=== PATIENT | male | born 1995 | race Caucasian/White ===

== ENCOUNTER 2024-11-22 15:12 | Emergency (ER) | payer SELFPAY ==
[~2024-11-22] VITALS: Ht 182.9 cm; Wt 96.0 kg
--- NOTE | 2024-11-22 15:18 | Physician Documentation ---
History of Present Illness ~ Chief Complaint: ETOH Withdrawl Stated Complaint: ETOH Time Seen by MD: 15:13 HPI 29-year-old male with a history of alcoholism and binge drinking along with following DTs presents today via EMS after a week-long binge Patient denies any history have not seizures but does have hallucinations with DTs states he has been drinking 6-10 40 oz bottles of beer a day. Last drink was at noon. Medication Reconciliation Allergies: Coded Allergies: No Known Allergies (Unverified , 11/22/24) Physical Exam Physical Exam General: Alert, Tremulous Respiratory: Lungs clear, no respiratory distress. Chest: No accessory muscle use. Cardiovascular: tachycardic Gastrointestinal: Soft, nontender, nondistended. Bowels sounds present. Neurologic: Oriented x4. Psychiatric: Anxious appearing Skin: Normal color, warm and dry. No edema, no ecchymosis. Progress Results/Orders Results/Orders Completed Orders - DIONICIO PARSONS C[employer]KE [employer]ING Cbc/Diff (11/22/24 15:39) BMP (11/22/24 15:39) Lipase (11/22/24 15:39) CMP (11/22/24 15:39) Normal Saline 1000ml (0.9% Sodium Chlori (11/22/24 15:40) Diazepam Inj (Valium Inj) (11/22/24 15:40) Ua W/Microscopic, Cult If Ind (11/22/24 15:57) Medications Received in ER Medications (Trade) Dose Ordered Sig/Elisabeth Route PRN Reason Start Time Stop Time Status Last Admin Dose Admin (0.9% sodium chloride (NS) 1000ml IV soln) 1,000 ml ONCE ONCE IVB 11/22/24 15:40 11/22/24 15:41 DC 11/22/24 16:01 1,000 ML (Valium inj) 10 mg ONCE ONCE IV 11/22/24 15:40 11/22/24 15:41 DC 11/22/24 16:01 10 MG Vital Signs 11/22/24 11/22/24 11/22/24 11/22/24 15:14 15:21 15:35 16:53 Temp 97.3 97.3 Pulse 120 91 95 Resp 24 17 18 B/P (MAP) 153/94 146/79 (101) 131/80 (97) Pulse Ox 94 94 97 O2 Flow Rate 0 0 Laboratory Tests Test 11/22/24 15:56 11/22/24 15:57 White Blood Count 9.6 Red Blood Count 5.92 Hemoglobin 17.2 Hematocrit 49.2 Mean Corpuscular Volume 83.1 Mean Corpuscular Hemoglobin 29.1 Mean Corpuscular Hemoglobin Concent 35.0 Red Cell Distribution Width 12.2 Platelet Count 401 Mean Platelet Volume 7.4 Neutrophils (%) (Auto) 64.9 Lymphocytes (%) (Auto) 27.0 Monocytes (%) (Auto) 6.8 Eosinophils (%) (Auto) 0.6 Basophils (%) (Auto) 0.7 Neutrophils # (Auto) 6.2 Lymphocytes # (Auto) 2.6 Monocytes # (Auto) 0.6 Eosinophils # (Auto) 0.1 Basophils # (Auto) 0.1 CBC Comment Sodium Level 135 Potassium Level 4.1 Chloride Level 99 Carbon Dioxide Level 26.7 Anion Gap 9 Blood Urea Nitrogen 12 Creatinine 1.06 Estimated GFR/1.73 m2 83 BUN/Creatinine Ratio 11.3 Glucose Level 88 Calcium Level 8.2 L Total Bilirubin 0.8 Aspartate Amino Transf (AST/SGOT) 53 H Alanine Aminotransferase (ALT/SGPT) 64 Alkaline Phosphatase 80 Total Protein 7.3 Albumin 4.1 Globulin 3.2 Albumin/Globulin Ratio 1.3 Lipase 65 Chemistry Comments Urine Specimen Description Urinal Urine Color Yellow Urine Clarity Clear Urine pH 6.0 Urine Specific [place] <=1.005 Urine Protein 30 H Urine Glucose (UA) Negative Urine Ketones Trace H Urine Occult Blood Small Urine Nitrite Negative Urine Bilirubin Negative Urine Urobilinogen 0.2 Urine Leukocyte Esterase Negative Urine RBC 3-10 Urine WBC 0-4 Urine Squamous Epithelial Cells Few Urine Bacteria Few Urine Fine Granular Casts 0-3 Urine Culture Indicated Not ind Volume Urine Centrifuged 10 ml Urine Comment Departure Disposition: HOME / SELF CARE / HOMELESS Impression: Primary Impression: Alcohol withdrawal syndrome Additional Impression: Alcohol dependence Condition: Stable Discharge Instructions: Alcohol Intoxication Referrals: NO PRIMARY CARE PROVIDER (PCP) Prescriptions Chlordiazepoxide Hcl (Librium) 25 Mg Capsule 2 CAP PO Q4H PRN for anxiety for 2 Days, #24 CAP 0 Refills Prov: DIONICIO PARSONS [employer]ING 11/22/24 Education Educated: Patient Educated regarding: diagnosis Signature Scribe Signature: fd Attestation: Scribed for Dionicio Parsons Belt Cleaner by Dionicio Novoa NP . 11/22/24 15:19 DIONICIO PARSONS NP Nov 22, 2024 15:18
[2024-11-22] MEDS: normal saline 1000ML IV soln IVB ONE (16:01)
[2024-11-22] MEDS: diazepam inj 5 MG/ML inj. IV ONE (16:01)
[2024-11-22 16:10] LABS: MEAN PLATELET VOLUME 7.4 FL (7.4-10.4); RED CELL DISTRIBUTION WIDTH 12.2 % (11.5-14.5)
[2024-11-22 16:13] LABS: LEUKOCYTE ESTERASE ,URINE NEGATIVE (Neg); NITRITES, URINE NEGATIVE (Neg); OCCULT BLOOD,URINE SMALL (Neg)
[2024-11-22 16:15] LABS: UA COLLECTION TYPE URINAL
[2024-11-22 16:25] LABS: CREATININE 1.06 MG/DL (0.60-1.10); TOTAL CARBON DIOXIDE 26.7 MMOL/L (24-32); eCRCL 113 ML/MIN; eGFR 83 ML/MIN
[2024-11-22 16:44] LABS: FINE GRANULAR CAST 0-3 /LPF (NEGATIVE); SQUAMOUS EPITHELIAL CELL,UR FEW /LPF (FEW)
[2024-11-22 16:53] VITALS: TEMP 97.3
[2024-11-22] MEDS ORDERED: CHLO25CA10 PO ×2 (17:00→17:01)
[2024-11-22 17:05] VITALS: BP 129/83; PULSE 81; RESP 23; O2SAT 96
== END 2024-11-22 17:27 | disposition home or self-care (01) ==
LOC: ER 15:12
DX: F10.239 Alcohol dependence with withdrawal, unspecified (principal); Y90.9 Presence of alcohol in blood, level not specified
CPT/HCPCS: 36415; 80053; 81001; 83690; 85025; 96361; 96374; 99284; J3360; J7030

== ENCOUNTER 2024-11-23 00:08 | Emergency (ER) | payer SELFPAY ==
[~2024-11-23] VITALS: Ht 182.9 cm; Wt 95.5 kg
[~2024-11-23 00:08] MED LIST: CHLO25CA10 PO
[2024-11-23 00:11] VITALS: BP 132/85; PULSE 106; RESP 16; TEMP 97.7; O2SAT 96
[2024-11-23 00:24] LABS: MEAN PLATELET VOLUME 7.0 FL (7.4-10.4); RED CELL DISTRIBUTION WIDTH 12.1 % (11.5-14.5)
[2024-11-23 00:44] LABS: CREATININE 1.07 MG/DL (0.60-1.10); TOTAL CARBON DIOXIDE 24.5 MMOL/L (24-32); eCRCL 112 ML/MIN; eGFR 82 ML/MIN
[2024-11-23 00:50] LABS: ETHANOL 401 MG/DL (<10)
== END 2024-11-23 01:15 | disposition left against medical advice (07) ==
LOC: ER 00:09
DX: F10.129 Alcohol abuse with intoxication, unspecified (principal); Z53.21 Procedure and treatment not carried out due to patient leaving prior to being seen by health care provider; Y90.9 Presence of alcohol in blood, level not specified
CPT/HCPCS: 36415; 80048; 80320; 85025

== ENCOUNTER 2024-11-23 08:39 | Emergency (ER) | payer BC ==
[~2024-11-23] VITALS: Ht 182.9 cm; Wt 97.7 kg
[2024-11-23 09:11] VITALS: BP 170/103; PULSE 86; RESP 18; TEMP 98.3; O2SAT 99
--- NOTE | 2024-11-23 09:24 | Physician Documentation ---
History of Present Illness ~ Chief Complaint: ETOH Withdrawl Stated Complaint: ALCOHOL WITHDRAWAL Time Seen by MD: 08:57 HPI 79-year-old male who was seen yesterday for ETOH withdrawal returns to the ED because he was unable to cone picker the prescribed Librium because his pharmacy was closed. Said he drank throughout the night and presents here requesting evaluation for ETOH withdrawal. His pharmacy opens at 10:00 a.m. which is currently 40 minutes from now. Vitals are within normal limits patient does not present with any tremors, seizures or any auditory or visual hallucinations Medication Reconciliation Allergies: Coded Allergies: No Known Allergies (Unverified , 11/22/24) Scheduled PRN Chlordiazepoxide Hcl (Librium), 2 CAP PO Q4H PRN for anxiety Review of Systems All Other Systems at this time: Reviewed and Negative ROS As stated above in the HPI, otherwise all systems are reviewed and negative. Physical Exam Vital Signs: Temperature: 98.3, Source: Oral, Heart Rate: 86, Respiratory Rate: 18, BP: 170/103, Pulse Oximetry: 99, Weight: 97.730 Oxygen Flow Rate: 0 Physical Exam General: Alert, no apparent distress. Respiratory: Lungs clear, no respiratory distress. Cardiovascular: Regular rate and rhythm, no murmurs. Gastrointestinal: Soft, nontender, nondistended. Bowels sounds present. Neurologic: Oriented x4. Psychiatric: Normal mood and affect. Progress Results/Orders Results/Orders Vital Signs 11/23/24 11/23/24 11/23/24 08:49 09:11 09:13 Temp 98.3 98.3 Pulse 96 86 Resp 17 18 B/P (MAP) 148/86 170/103 (125) Pulse Ox 100 99 O2 Flow Rate 0 0 Medical Decision Making Findings This patient actually looks quite a bit better than he did yesterday when he was treated for alcohol withdrawal. Explained to the patient that his laboratory values were reassuring yesterday and mostly what he had received in the ED is IV fluids and benzodiazepines. However he already has Librium awaiting for him at the pharmacy which opens in 40 minutes. Explained that the goal is to abstain from alcohol and use Librium to taper. I explained this both to the patient and his significant other. He has been time reassuring them that he actually looks better today than he did yesterday. They verbalized understanding. Safe for discharge Differential Dx:Considerations: Intoxication - ETOH, Intoxication - other drug, Sub. Abuse -continuous, Sub. Abuse-intermittent, Skull fracture, Fracture - other bone, Personality disorder, Closed head injury, Cervical spine injury, Abrasion, Confusion, Hematoma, Laceration, Foreign body, Dehydration, Encephalopathy, Hepatitis, Pancreatitis, Thiamine deficiency, Other Departure Disposition: 01 HOME / SELF CARE / HOMELESS Impression: Primary Impression: Alcohol dependence Condition: Stable Discharge Instructions: Alcohol Intoxication Additional Instructions: Please cone picker the prescribed medications at your pharmacy to assist you with a tapering alcohol usage Referrals: NO PRIMARY CARE PROVIDER (PCP) Signature Scribe Signature: k Attestation: Scribed for Dionicio Parsons Capacity Planning Analyst by Dionicio Novoa NP . 11/23/24 18:17 DIONICIO PARSONS NP Nov 23, 2024 09:24
== END 2024-11-23 09:31 | disposition home or self-care (01) ==
LOC: ER 08:40
DX: F10.20 Alcohol dependence, uncomplicated (principal); Y90.9 Presence of alcohol in blood, level not specified
CPT/HCPCS: 99282; 99283

== ENCOUNTER 2025-04-16 19:35 | Emergency (ER) | payer BC ==
[~2025-04-16] VITALS: Ht 182.9 cm; Wt 95.0 kg
--- NOTE | 2025-04-16 19:55 | ELECTROCARDIOGRAPH REPORT ---
[facility] Test Date: 2025-04-16 Test Time: 19:44:00 Pat Name: IRIS MASON Department: EMERGENCY ROOM Patient ID: [id number] Room: Gender: M Director [employer]: LEONILA : 1995 Requested By: PRISCILLA HARRIS Order Number: [id number] Reading MD: Measurements Intervals [place] Rate: 75 P: 67 FL: 176 QRS: -16 QRSD: 106 T: 41 QT: 377 QTc: 421 Interpretive Statements Sinus rhythm Borderline left axis deviation Baseline wander in lead(s) V4,V5 Please click the below link to view image of tracing.
[2025-04-16 20:20] LABS: MEAN PLATELET VOLUME 7.4 FL (7.4-10.4); RED CELL DISTRIBUTION WIDTH 12.5 % (11.5-14.5)
[2025-04-16 20:41] LABS: CREATININE 1.03 MG/DL (0.60-1.10); TOTAL CARBON DIOXIDE 29.8 MMOL/L (24-32); eCRCL 115 ML/MIN; eGFR 85 ML/MIN
[2025-04-16 20:44] LABS: PRO BRAIN NATRIURETIC PEPTIDE < 30 PG/ML (0-125)
--- NOTE | 2025-04-16 21:40 | RADIOLOGY REPORT ---
CLINICAL HISTORY: CP. TECHNIQUE: Single frontal view of the chest was obtained. COMPARISON: None available. FINDINGS: Lungs: Clear. Pleura: No pneumothorax or pleural effusion. Cardiomediastinal silhouette: Normal in size. Bones: No acute osseous abnormality. Imaged Upper Abdomen: Unremarkable. IMPRESSION: NO ACUTE CARDIOPULMONARY PROCESS.
[2025-04-16 22:56] LABS: ETHANOL < 10 MG/DL (<10)
--- NOTE | 2025-04-16 23:13 | Physician Documentation ---
History of Present Illness General Chief Complaint: ETOH Withdrawl Stated Complaint: ALCOHOL WITHDRAWL Time Seen by MD: 20:52 Mode of Arrival: POV History of Present Illness Initial Comments This is a 30-year-old gentleman with a known history of alcohol use disorder who presents for evaluation of alcohol withdrawal symptoms that he describes as anxiety, chest palpitation is a tightness, a nausea. He reports shakes. Last drink was at 6:00 a.m.. He typically drinks six of the 40 oz high gravity beers a day throughout the 24 hour period. No particular palliating or aggravating factors. This is similar to prior alcohol withdrawal. Never had alcohol withdrawal delirium of seizures. Denies any other symptoms. Denies drug use. Medication Reconciliation Allergies: Coded Allergies: No Known Allergies (Unverified , 11/22/24) Scheduled PRN Chlordiazepoxide Hcl (Librium), 2 CAP PO Q4H PRN for anxiety Review of Systems ROS 10 point review of systems was performed and unless noted above in HPI is negative for acute process/complaint. Physical Exam Physical Exam Vital Signs: Temperature: 98.6, Heart Rate: 68, Respiratory Rate: 16, BP: 151/109, Pulse Oximetry: 98, Weight: 95.000 Oxygen Flow Rate: 0 Physical Exam GENERAL: Awake, alert, oriented, GCS 15, no apparent distress, non-toxic appearing, answers questions, follows commands appropriately. Examined in bed 3. HEENT: Atraumatic, normocephalic, pupils equal, extraocular muscles intact, sclerae anicteric, mucus membranes moist, oropharynx is clear, no stridor. NECK: supple, full active range of motion, trachea midline, no thyromegaly, no lymphadenopathy, no JVD. CARDIOVASCULAR: regular rate/rhythm, no murmurs/gallops/rubs, Pulses are 2+ in all extremities and symmetric. Capillary refill less than 2 seconds. PULMONARY: Nonlabored, good air movement ,no respiratory distress, speaking in full sentences, clear to auscultation bilaterally, no wheezing, no ronchi, no rales, no accessory muscle use. GASTROINTESTINAL: Soft, non-tender, non-distended, normal active bowel sounds, no organomegaly, no pulsatile masses, no CVA tenderness. NEUROLOGIC: Lucid with normal mental status. Normal facial symmetry. Moves all extremities symmetrically and with purpose. No truncal ataxia. Speech is fluid without evidence of dysarthria or aphasia, no focal deficits appreciated. MUSCULOSKELETAL: There is full range of motion of all extremities. There is no joint pain or joint swelling or joint erythema. There is no muscle pain or tenderness or swelling. EXTREMITIES: warm, well-perfused, no cyanosis, no clubbing, no edema, no acute deformities. Skin: warm, dry, no rashes or lesions, no jaundice, no petechiae orpurpura. No ecchymosis. PSYCHIATRIC: Normal affect, normal insight, normal concentration. Focused exam: Mild bilateral upper extremity tremors and tongue fasciculations noted. Progress Results/Orders Results/Orders Orders - JEAN PIERRE HARRIS DO Chest,Single View (04/16/25 19:53) Monitor (04/16/25 19:53) Saline Lock (04/16/25 19:53) Oxygen (04/16/25 19:53) Completed Orders - JEAN PIERRE HARRIS DO Chest,Single View (04/16/25 19:53) Cbc/Diff (04/16/25 19:53) BMP (04/16/25 19:53) PBNP (04/16/25 19:53) Electrocardiogram (04/16/25 19:53) Hs Troponin I W Calculations (04/16/25 19:53) Hs Troponin I W Calculations (04/16/25 21:53) Ethanol (04/16/25 20:05) Vital Signs 04/16/25 04/16/25 04/16/25 19:44 22:43 22:49 Temp 98.6 98.6 Pulse 72 68 Resp 16 16 B/P (MAP) 146/101 151/109 (123) Pulse Ox 95 96 98 O2 Delivery Room Air* O2 Flow Rate 0 0 0 FiO2 21 21 Laboratory Tests Test 04/16/25 20:05 04/16/25 22:02 White Blood Count 11.5 H Red Blood Count 5.44 Hemoglobin 16.2 Hematocrit 47.2 Mean Corpuscular Volume 86.7 Mean Corpuscular Hemoglobin 29.8 Mean Corpuscular Hemoglobin Concent 34.3 Red Cell Distribution Width 12.5 Platelet Count 354 Mean Platelet Volume 7.4 Neutrophils (%) (Auto) 71.1 Lymphocytes (%) (Auto) 20.0 L Monocytes (%) (Auto) 6.6 Eosinophils (%) (Auto) 1.8 Basophils (%) (Auto) 0.5 Neutrophils # (Auto) 8.2 H Lymphocytes # (Auto) 2.3 Monocytes # (Auto) 0.8 Eosinophils # (Auto) 0.2 Basophils # (Auto) 0.1 CBC Comment Sodium Level 132 L Potassium Level 3.6 Chloride Level 95 L Carbon Dioxide Level 29.8 Anion Gap 7 L Blood Urea Nitrogen 16 Creatinine 1.03 Estimated GFR/1.73 m2 85 BUN/Creatinine Ratio 15.5 Glucose Level 101 Calcium Level 9.2 Troponin I High Sensitivity < 4 L 4 Troponin I High Sens Percent Delta Troponin I Hi Sens Absolute Change Pro-B-Type Natriuretic Peptide < 30 Albumin 4.2 Chemistry Comments Ethyl Alcohol Level < 10 Medical Decision Making Additional information obtaine: old records Findings Facility Status: ED Holds, [facility] process The plan was discussed with the patient, who demonstrates clear understanding of the plan and is in agreement with the plan unless otherwise noted in the chart. All questions have been answered, all concerns were addressed unless otherwise documented. I was available throughout their ED stay for frequent reassessment and questions. Differential Diagnoses (considered and possible or likely): [Uncomplicated alcohol withdrawal, alcohol withdrawal with the seizures, alcohol withdrawal delirium, alcoholic ketoacidosis, less likely hypoglycemia, dehydration, electrolyte derangement. Unlikely ACS.] ??Differential Diagnoses (considered and unlikely, not requiring evaluation currently): [See above] MDM Data Please see [facility] for the following: Independent Historians and external Records Review. Historian: [Patient] Independent Historians: ?[Record review] Medication Management: [Reviewed medication list] Social History and determinants: [Reviewed] Please see the body of the note for the following: Any independent interpretations of ECG, imaging studies. All vitals signs/haemodynamics, ordered tests were independently reviewed and interpreted by myself. Nursing triage complaint and vitals reviewed, additional nursing notes were reviewed as available and I agree unless otherwise noted or documented in contradiction in the chart Vital Signs: Independently reviewed Labs: Independently interpreted Imaging: Independently interpreted Old Medical Records: Independently reviewed, see HPI for relevant summary and information Pulse Oximetry: [99%] interpreted as [normal on room air] by me [Admin Dir: [Regular Rate, Regular rhythm, no ectopy, NSR] reviewed and interpreted by me] Additionally notably showing: [Hemodynamics reviewed. The patient is not tachycardic, mildly hypotensive, no evidence of respiratory distress. CBC normal. No leukocytosis, no anemia. Metabolic panel shows mild hyponatremia. Troponin is negative twice. BNP is negative. Ethanol is negative. Chest x-ray was obtained showing no acute cardiopulmonary disease.] Tests considered but not ordered include: [Advanced imaging has been considerably does not appear to be necessary] Social Determinants of Health Impact: Patient was evaluated in [facility] [place] to healthcare due to below par ratio of patient to medical providers. [] Comorbid Conditions Impacting Present Evaluation and Care/Treatment: [Alcoholism, prior history of alcohol withdrawal] Management Discussions with other Healthcare Providers: [None] Treatment and Disposition Medication Management (Given or considered): [Librium]. See EMR for details Consideration for Hospitalization/Escalation/Deescalation of Care: Admission for observation has been considered, [however the patient is able to tolerate p.o., their symptoms are controlled, they are able to rely on oral medications, and their chief complaint/diagnosis can be managed on outpatient basis.] ?ED Course:?[Admission for observation and management of alcohol withdrawal was offered, patient declines and would like to try an outpatient therapy 1st.] ?Shared decision making:?[Patient is hemodynamically stable for discharge home with follow with their primary care provider. [ ] Specific and cautious return precautions provided and discussed with full understanding. Any incidental findings were also discussed and follow up recommendations given. [] All questions answered. Patient/family were able to verbalize back return precautions. Patient/family agree to plan. Copies of imaging and laboratory studies were provided.] Code status:?FULL Please see the full Electronic Medical Record for full details of nursing documentation, medications list, other records of complete past medical history and conditions, vital signs, laboratory studies, and any radiologic study interpretations by radiologists. Portions of this note were completed using buuteeq dictation software and as a result there may exist minor errors in spell ing. I have reviewed elements of past family and social history and agree as included in note. Differential Diagnosis See body of main note for differential diagnosis Departure Disposition: HOME / SELF CARE / HOMELESS Impression: Primary Impression: Alcohol withdrawal Additional Impression: Alcohol dependence Condition: Improved Discharge Instructions: Alcohol Withdrawal Syndrome Referrals: NO PRIMARY CARE PROVIDER (PCP) Prescriptions Chlordiazepoxide Hcl (Librium) 25 Mg Capsule 1-2 CAP PO QID PRN for alcohol withdrawal for 4 Days, #16 CAP 0 Refills Take two caps p.o. as needed for alcohol withdrawal every 6 hours for the 1st day, Take one cap p.o. as needed for alcohol withdrawal every 6 hours for the 2nd day, Take one cap p.o. as needed for alcohol withdrawal b.i.d. with the 3rd day, Take one cap p.o. as needed for alcohol withdrawal q.h.s. on day four Prov: JEAN PIERRE HARRIS DO 04/16/25 Education Educated: Patient Educated regarding: diagnosis, treatment, prognosis, need for follow up Signature Scribe Signature: No scribe Attestation: The note accurately reflects work and decisions made by me.Jean Pierre Harris DO 04/16/25 23:11 JEAN PIERRE HARRIS DO Apr 16, 2025 23:13
[2025-04-16] MEDS ORDERED: CHLO25CA10 PO (23:16)
[2025-04-16 23:50] VITALS: BP 156/102; PULSE 69; RESP 12; TEMP 98.6; O2SAT 96
== END 2025-04-16 23:57 | disposition home or self-care (01) ==
LOC: ER 19:35
DX: F10.239 Alcohol dependence with withdrawal, unspecified (principal); F41.9 Anxiety disorder, unspecified; R06.2 Wheezing; Y90.9 Presence of alcohol in blood, level not specified
CPT/HCPCS: 36415; 71045; 80048; 80320; 83880; 84484; 85025; 93005; 99285; J7030